=== PATIENT | male | born 1995 | race Caucasian/White ===

== ENCOUNTER 2017-01-04 03:46 | Emergency (ER) | payer BC, OTHER ==
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
[2017-01-04 04:22] LABS: Hematocrit 40.5 % (42.0-52.0); Hemoglobin 13.7 gm/dL (13.5-18.0); Mean Cell Volume 86.7 fl (78-100); Mean Corpuscular Hemoglobin 29.3 pg (27-31); Mean Corpuscular Hgb Conc 33.8 g/dl (32-36); Mean Platelet Volume 9.5 fl (6.0-9.5); Neutrophil # 4.4 K/mm3 (1.3-6.0); Neutrophil % 56.7 % (42-75.0); Platelet Count 246 K/mm3 (150-450); Red Blood Count 4.67 M/mm3 (4.7-6.0); Red Cell Distribution Width 11.8 % (11.5-14.0); White Blood Count 7.7 K/mm3 (4.0-10.5)
[2017-01-04 04:42] LABS: ALT 25 U/L (19-67); AST 14 U/L (0-48); Albumin * 4.1 gm/dl (3.4-5.0); Alkaline Phosphatase * 101 U/L (50-170); Anion Gap 12.7 mmol/L (6.8-13.8); Bilirubin, Total 1.1 mg/dL (0.0-1.1); Blood Urea Nitrogen 19 mg/dL (6-23); Ca. Corrected For Albumin 8.6 mg/dL (8.4-10.2); Carbon Dioxide 29.2 mmol/L (24-32.6); Chloride 103 mmol/L (97-106); Glucose * 110 mg/dL (70-110); Potassium 3.9 mmol/L (3.4-4.6); Sodium 141 mmol/L (132-142); Total Protein 7.2 gm/dL (6.2-8.2)
[2017-01-04 05:06] LABS: Urine Bilirubin Negative (NEGATIVE); Urine Blood Negative /ul (NEGATIVE); Urine Ketone Negative (NEGATIVE); Urine Nitrite Negative (NEGATIVE); Urine Protein Negative (NEGATIVE); Urine Urobilinogen Normal (NORMAL); Urine pH 6.5 pH (5.0-7.0)
[2017-01-04 05:17] LABS: Urine Appearance Clear; Urine Bacteria None Seen; Urine Color Yellow; Urine RBC None Seen /hpf (0-5); Urine WBC None Seen /hpf (0-5)
[2017-01-04 05:19] LABS: Cocaine Ur Negative (NEGATIVE); Urine Barbiturate Negative (NEGATIVE); Urine Benzodiazepines Negative (NEGATIVE); Urine Opiates Negative (NEGATIVE); Urine PCP Negative (NEGATIVE); Urine THC Negative (NEGATIVE)
[2017-01-04] MEDS ORDERED: KETOROLAC TROMETHAMINE 30 MG/ML VIAL ONE (05:38)
[2017-01-04] MEDS ORDERED: KETOROLAC TROMETHAMINE 30 MG/ML VIAL IV ONE (05:38)
[2017-01-04 06:21] VITALS: BP 114/69
== END 2017-01-04 08:50 | disposition home or self-care (01) ==
LOC: ER 03:46 → UNDOADMOB 06:47 → MS 06:47 → ER 08:50
DX: R42 Dizziness and giddiness (principal); V89.2XXA Person injured in unspecified motor-vehicle accident, traffic, initial encounter; Y92.411 Interstate highway as the place of occurrence of the external cause; Y93.89 Activity, other specified; Y99.8 Other external cause status